=== PATIENT | male | born 1980 | race Caucasian/White ===

== ENCOUNTER 2017-07-04 09:02 | Emergency (ER) | payer BC ==
[2017-07-04] MEDS ORDERED: Ondansetron 4 MG/2 ML SDV IV ONE ×2 (09:03→10:42)
[2017-07-04] MEDS ORDERED: fentaNYL 100 MCG/2 ML SDV IV ONE (09:03)
[2017-07-04] MEDS ORDERED: Propofol 200 MG/20 ML SDV IV ONE (09:03)
--- NOTE | 2017-07-04 09:18 | EDM.PDOC ---
ED HPI GENERAL MEDICAL PROBLEM - General Chief Complaint: Upper Extremity Injury/Pain Stated Complaint: [id number] BROKEN LEFT WRIST/ARM Time Seen by Provider: 07/04/17 09:17 Source of Information: Reports: Patient, Old Records, RN, RN Notes Reviewed History Limitations: Reports: No Limitations - History of Present Illness INITIAL COMMENTS - FREE TEXT/NARRATIVE: Right hand dominante male arrives to ER by POV with c/o severe left wrist pain sustained just prior to arrival when pt fell on the ice onto out stretched left hand. Denies any other injury. Onset: Sudden Onset Date: 07/04/17 Duration: Constant Location: Reports: Upper Extremity, Left Quality: Reports: Ache Severity: Severe Improves with: Reports: Immobilization Worsens with: Reports: Movement Context: Reports: Other (ground level fall) Associated Symptoms: Reports: No Other Symptoms Left Hand Pain Score (Numeric/FACES): 6 - Related Data Allergies Allergy/AdvReac Type Severity Reaction Status Date / Time No Known Allergies Allergy Verified 07/04/17 09:16 Home Meds: Home Meds . [No Known Home Meds] 07/04/17 [History] Past Medical History - Past Health History Medical/Surgical History: Denies Medical/Surgical History Endocrine/Metabolic History: Reports: Obesity/BMI 30+ Social & Family History - Family History Family Medical History: Noncontributory - Tobacco Use Smoking Status *Q: Never Smoker - Alcohol Use Alcohol Use History: Yes Alcohol Use Frequency: Socially - Recreational Drug Use Recreational Drug Use: No - Living Situation & Occupation Living situation: Reports: , with Family Occupation: Employed Review of Systems - Review of Systems Review Of Systems: ROS reveals no pertinent complaints other than HPI. ED EXAM, GENERAL - Physical Exam Exam: See Below Exam Limited By: No Limitations General Appearance: Alert, WD/WN, No Apparent Distress, Obese Ears: Hearing Grossly Normal Nose: Normal Inspection Throat/Mouth: Normal Inspection, Normal Lips, Normal Teeth, Normal Gums, Normal Oropharynx, Normal Voice, No Airway Compromise Head: Atraumatic, Normocephalic Neck: Normal Inspection, Full Range of Motion Respiratory/Chest: No Respiratory Distress, Lungs Clear, Normal Breath Sounds, No Accessory Muscle Use, Chest Non-Tender Cardiovascular: Normal Peripheral Pulses, Regular Rate, Rhythm, No Edema, No Gallop, No JVD, No Murmur, No Rub Peripheral Pulses: 3+: Radial (L), Radial (R) Extremities: Other (left wrist with obvious dorsal angulated deformity, soft tissue swelling, and tenderness w/painful & limited ROM, skin intact) Neurological: Alert, Oriented, CN II-XII Intact, Normal Cognition, Normal Gait, No Motor/Sensory Deficits Psychiatric: Normal Affect, Normal Mood Skin Exam: Warm, Dry, Intact, Normal Color, No Rash ED TRAUMA EXTREMITY PROCEDURES - Joint Reduction Site: Other (left wrist) Sedation: Conscious Sedation, Regional Block Local Anesthesia - Lidocaine (Xylocaine): 1% Plain Local Anesthetic Volume: Other (20) Pre-Procedure NV Status: Normal Post-Procedure NV Status: Normal Technique: Other (manual traction closed reduction of left distal radius fracture) Number of Attempts: 1 Post-Reduction Imaging: Acceptably Reduced Joint Reduction Complications: No - Splinting Left Upper Extremity Splint Site: left wrist Pre-Procedure NV Status: Normal Post-Procedure NV Status: Normal Splint Material: Fiberglass Splint Design: Volar Applied & Form Fitted By: Provider Provider Post-Splint Application NV Check: NV Status Normal, Good Position Complications: No Course - Vital Signs Last Recorded V/S: Last Vital Signs Temp 36.0 C 07/04/17 09:08 Pulse 76 07/04/17 09:08 Resp 18 07/04/17 09:08 BP 108/87 07/04/17 09:08 Pulse Ox 96 07/04/17 09:08 - Orders/Labs/Meds Orders: Active Orders 24 hr Category Date Time Status Peripheral IV Care [RC] . DIRECTED Care 07/04/17 09:40 Active Wrist 2V Lt [CR] Urgent Exams 07/04/17 10:18 Taken Sodium Chloride 0.9% [Saline Flush] Med 07/04/17 09:40 Active 10 ml FLUSH ASDIRECTED PRN Peripheral IV Insertion Adult [OM.PC] Stat Oth 07/04/17 09:40 Ordered Medication Orders Sodium Chloride (Saline Flush) 10 ml FLUSH ASDIRECTED PRN PRN Reason: Keep Vein Open Last Admin: 07/04/17 09:52 Dose: 10 ml Meds: Medications Generic Name Dose Route Start Last Admin Trade Name Freq PRN Reason Stop Dose Admin Sodium Chloride 10 ml 07/04/17 09:40 07/04/17 09:52 Saline Flush FLUSH 10 ml ASDIRECTED PRN Administration Keep Vein Open Discontinued Medications Generic Name Dose Route Start Last Admin Trade Name Esteban PRN Reason Stop Dose Admin Fentanyl 100 mcg 07/04/17 09:41 07/04/17 09:51 Sublimaze IVPUSH 07/04/17 09:42 100 mcg ONETIME ONE Administration Lidocaine HCl 30 ml 07/04/17 09:40 07/04/17 09:52 Xylocaine-Mpf 1% INJECT 07/04/17 09:41 30 ml ONETIME ONE Administration Ondansetron HCl Confirm 07/04/17 09:53 Zofran Administered 07/04/17 09:54 Dose 4 mg .ROUTE .STK-MED ONE Ondansetron HCl 4 mg 07/04/17 10:42 07/04/17 10:43 Zofran IV 07/04/17 10:43 4 mg ONETIME ONE Administration Departure - Departure Time of Disposition: 11:06 Disposition: Home, Self-Care 01 Condition: Good Clinical Impression: Closed fracture of distal end of left radius Qualifiers: Encounter type: initial encounter Fracture morphology: unspecified fracture morphology Qualified Code(s): S52.502A - Unspecified fracture of the lower end of left radius, initial encounter for closed fracture Fall due to ice or snow Qualifiers: Encounter type: initial encounter Qualified Code(s): W00.9XXA - Unspecified fall due to ice and snow, initial encounter - Discharge Information Instructions: Colles Fracture, Pain Medicine Instructions, [id number] Forms: ED Department Discharge Additional Instructions: Rx: Hydrocodone APAP 5mg/325mg *Do not drive while under the influence of this medication. Rx: Zofran 4mg Do not remove splint. May loosen KIANNA wrap if splint is too tight. Monitor the tips of your left fingers to ensure they stay pink and warm. Return to ER if finger tips become cold, painful, or blue/purple colored. Follow up with [facility] Thursday, Jul.06. Return to ER if any concerns. - My Orders Last 24 Hours: My Active Orders 07/04/17 09:40 Peripheral IV Care [RC] . DIRECTED Sodium Chloride 0.9% [Saline Flush] 10 ml FLUSH ASDIRECTED PRN Peripheral IV Insertion Adult [OM.PC] Stat 07/04/17 10:18 Wrist 2V Lt [CR] Urgent - Assessment/Plan Last 24 Hours: My Active Orders 07/04/17 09:40 Peripheral IV Care [RC] . DIRECTED Sodium Chloride 0.9% [Saline Flush] 10 ml FLUSH ASDIRECTED PRN Peripheral IV Insertion Adult [OM.PC] Stat 07/04/17 10:18 Wrist 2V Lt [CR] Urgent
[2017-07-04] MEDS ORDERED: Lidocaine 1% 30 ML SDV INJECT ONE (09:40)
[2017-07-04] MEDS ORDERED: Sodium Chloride 0.9% 10 ML Syringe FLUSH PRN (09:40)
[2017-07-04] MEDS ORDERED: fentaNYL 100 MCG/2 ML SDV IVPUSH ONE (09:41)
[2017-07-04] MEDS ORDERED: Ondansetron 4 MG/2 ML SDV ONE (09:53)
== END 2017-07-04 11:28 | disposition home or self-care (01) ==
LOC: DL.ED 09:02
DX: S52.502A Unspecified fracture of the lower end of left radius, initial encounter for closed fracture (principal); E66.9 Obesity, unspecified; Z68.30 Body mass index [BMI] 30.0-30.9, adult; W00.9XXA Unspecified fall due to ice and snow, initial encounter
CPT/HCPCS: 25605; 73100; 73110; 96374; 96375; 99152; 99153; 99284; J2405; J2704; J3010; J7050